=== PATIENT | male | born 1990 | race Caucasian/White ===

== ENCOUNTER 2016-08-03 00:44 | Emergency (ER) | payer SELFPAY ==
[~2016-08-03] VITALS: Ht 162.6 cm; Wt 75.0 kg
[~2016-08-03 00:44] MED LIST: CEPH-443 PO; IBUP-1542 PO
[2016-08-03 00:55] VITALS: Ht 162.6 cm; Wt 75.0 kg
[2016-08-03] MEDS ORDERED: SOD CHLORIDE 0.9% 1,000 ML IV STA (02:33)
[2016-08-03 02:58] LABS: BASOPHILS % 0.3 % (0.0-2.0); EOSINOPHILS % 0.3 % (0.0-7.0); HEMATOCRIT 49.9 % (42.0-52.0); HEMOGLOBIN 17.2 g/dl (14.0-18.0); LYMPHOCYTES # 1.5 10^3/ul (0.8-2.9); MEAN CORPUSCULAR HEMOGLOBIN 30.2 pg (29.0-33.0); MEAN CORPUSCULAR HGB CONC 34.4 g/dl (32.0-37.0); MEAN CORPUSCULAR VOLUME 87.7 fl (82.0-101.0); MEAN PLATELET VOLUME 8.1 fl (7.4-10.4); MONOCYTE # 0.9 10^3/ul (0.3-0.9); NEUTROPHIL # 6.5 10^3/ul (1.6-7.5); NEUTROPHILS % 72.4 % (39.0-77.0); PLATELET COUNT 285 10^3/UL (140-440); RED CELL DISTRIBUTION WIDTH 12.7 % (11.5-14.5)
[2016-08-03 03:00] LABS: CONDITION 1
[2016-08-03] MEDS ORDERED: LORAZEPAM 2 MG INJ IV ONE (03:00)
[2016-08-03 03:03] LABS: CHLORIDE 98 mmol/L (97-110)
[2016-08-03 03:04] LABS: POTASSIUM 3.8 mmol/L (3.5-5.1); SODIUM 142 mmol/L (135-144)
[2016-08-03 03:06] LABS: ALBUMIN/GLOBULIN RATIO 1.11; ALKALINE PHOSPHATASE 87 IU/L (42-121); ANION GAP 19 (8-16); ASPARTATE AMINO TRANSFERASE 77 IU/L (15-46); BILIRUBIN,INDIRECT 1.1 mg/dl (0-1.1); BILIRUBIN,TOTAL 1.1 mg/dl (0.2-1.3); BLOOD UREA NITROGEN 13 mg/dl (7-20); CARBON DIOXIDE 29 mmol/L (21-31); CREATININE 0.91 mg/dl (0.61-1.24); TOTAL PROTEIN 9.5 g/dl (6.1-8.1)
[2016-08-03 03:07] LABS: ALANINE AMINOTRANSFERASE 156 IU/L (13-69); CALCIUM 10.2 mg/dl (8.4-10.2); GLUCOSE 108 mg/dl (70-220)
[2016-08-03 03:21] LABS: TROPONIN-I < 0.012 ng/ml (0.00-0.12)
--- NOTE | 2016-08-03 03:33 | ERD ---
ER Documentation Chief Complaint Date/Time DATE: 08/03/16 TIME: 03:31 Chief Complaint pt reports cp for days and did crystal meth yesterday HPI 25-year-old man presents with palpitations and anxiety after using methamphetamines this evening. He denies suicidal homicidal ideation, no chest pain or shortness of breath, no vomiting or diarrhea. ROS All systems reviewed and are negative except as per history of present illness. Medications Home Meds Active Scripts Cephalexin* (Keflex*) 500 Mg Capsule, 500 MG PO QID for 7 Days, CAP Prov:LASHON SANDOVAL PA-C 02/01/16 Ibuprofen* (Motrin*) 600 Mg Tab, 600 MG PO Q6, #30 TAB Prov:LASHON SANDOVAL PA-C 02/01/16 Allergies Allergies: Coded Allergies: No Known Allergy (Unverified , 02/01/16) PMhx/Soc Drug abuse Medical and Surgical Hx: pt denies Medical Hx, pt denies Surgical Hx Hx Alcohol Use: Yes (everyday) Hx Substance Use: Yes (crystal meth last used today) Hx Tobacco Use: No Smoking Status: Never smoker FmHx Family History: No diabetes Physical Exam Vitals Vital Signs Date Time Temp Pulse Resp B/P Pulse Ox O2 Delivery O2 Flow Rate FiO2 08/03/16 02:34 85 19 152/105 98 Room Air 08/03/16 00:55 98.9 143 24 175/92 100 Physical Exam GENERAL: Well-developed, well-nourished, anxious HEENT: Moist mucous membranes, pink conjunctiva, no cervical spine tenderness or step-off deformities, no goiter, no jaundice or icterus, extraocular movements intact without pain. No submandibular induration, and no pharyngeal erythema NEURO: Alert and oriented 3, cranial nerves II through XII intact bilaterally, pupils equal round reactive to light, no focal deficits or facial asymmetry, sensation intact distally Strength 5/5 in upper and lower extremities bilaterally CARDIAC: Tachycardic, no murmurs rubs or gallops LUNGS: Clear bilaterally no wheezing crackles or stridor ABDOMEN: Soft nontender, no guarding, no rigidity, no rebound, no psoas sign no obturator sign. Normoactive bowel sounds SKIN: Warm and dry to touch, no abrasions, contusions, or hematomas, no lacerations, no ecchymosis, no target lesions, and without ulcers EXTREMITIES: No clubbing cyanosis or edema, calves are bilaterally symmetrical, no Homans sign, no popliteal cord sign. Distal pulses equal and bilateral PSYCH: Anxious Result Diagram: 08/03/16 0250 08/03/16 0250 Results 24 hrs Laboratory Tests Test 08/03/16 02:50 Alanine Aminotransferase (ALT/SGPT) 156IU/L Albumin 5.0g/dl Albumin/Globulin Ratio 1.11 Alkaline Phosphatase 87IU/L Anion Gap 19 Aspartate Amino Transf (AST/SGOT) 77IU/L Basophils # 0.010^3/ul Basophils % 0.3% Blood Urea Nitrogen 13mg/dl Calcium Level 10.2mg/dl Carbon Dioxide Level 29mmol/L Chloride Level 98mmol/L Creatinine 0.91mg/dl Direct Bilirubin 0.00mg/dl Eosinophils # 0.010^3/ul Eosinophils % 0.3% Globulin 4.50g/dl Glucose Level 108mg/dl Hematocrit 49.9% Hemoglobin 17.2g/dl Indirect Bilirubin 1.1mg/dl Lipase 41U/L Lymphocytes # 1.510^3/ul Lymphocytes % 17.0% Mean Corpuscular Hemoglobin 30.2pg Mean Corpuscular Hemoglobin Concent 34.4g/dl Mean Corpuscular Volume 87.7fl Mean Platelet Volume 8.1fl Monocytes # 0.910^3/ul Monocytes % 10.0% Neutrophils # 6.510^3/ul Neutrophils % 72.4% Nucleated Red Blood Cells # 0.010^3/ul Nucleated Red Blood Cells % 0.0/100WBC Platelet Count 27121^3/UL Potassium Level 3.8mmol/L Red Blood Count 5.7010^6/ul Red Cell Distribution Width 12.7% Sodium Level 142mmol/L Total Bilirubin 1.1mg/dl Total Protein 9.5g/dl Troponin I < 0.012ng/ml White Blood Count 9.010^3/ul Current Medications Medications (Trade) Dose Ordered Sig/Marylu Route PRN Reason Start Time Stop Time Status Last Admin Dose Admin Sodium Chloride (NS) 1,000 ml @ 1,000 mls/hr Q1H STAT IV 08/03/16 02:33 08/03/16 03:32 DC 08/03/16 03:00 Lorazepam (Ativan) 1 mg ONCE ONCE IV 08/03/16 03:00 08/03/16 03:01 DC 08/03/16 03:00 Clonidine (Catapres) 0.1 mg ONCE ONCE PO 08/03/16 03:00 08/03/16 03:01 DC 08/03/16 02:59 Procedures/MDM IV line was established patient was placed on umbrella frame maker rhythm strip revealed a sinus tachycardia at about 120 bpm with upright P and T waves. Patient was afebrile. EKG was performed, read by me revealing a sinus tachycardia at 119 bpm, right axis deviation, narrow QRS complex, no concerning ST elevations or depressions noted. I administered 1 L normal saline intravenously, lorazepam 1 mg IV, and clonidine 0.1 mg p.o. for hypertension. CBC and electrolytes were unremarkable, liver function tests were within normal limits except for a slightly elevated transaminase levels, troponin was negative. Patient's vital signs and blood pressure improved, his anxiety improved. Differential diagnoses considered, included but not limited to acute coronary syndrome, pulmonary embolism, aortic dissection, abdominal aortic aneurysm, sepsis, stroke, meningitis, encephalitis, pneumonia, appendicitis, cholecystitis , bowel obstruction, pyelonephritis, nephrolithiasis, cystitis, as well as metabolic, hematologic, and electrolyte abnormalities. As well as abscess, cellulitis, fractures, and dislocations. Patient feels much better at this time, and vital signs are normal, symptoms have improved. I did give strict instructions to return to the ED if symptoms continue or worsen, patient will otherwise follow-up with primary care physician. Patient understood instructions and agreed to plan. Departure Diagnosis: Primary Impression: Methamphetamine abuse Additional Impressions: Hypertension Hypertension type: essential hypertension Qualified Code: I10 - Essential hypertension Anxiety Condition: Good Patient Instructions: Understanding Methamphetamine Abuse and Addiction Referrals: [facility] YOU HAVE RECEIVED A MEDICAL SCREENING EXAM AND THE RESULTS INDICATE THAT YOU DO NOT HAVE A CONDITION THAT REQUIRES URGENT TREATMENT IN THE EMERGENCY DEPARTMENT. FURTHER EVALUATION AND TREATMENT OF YOUR CONDITION CAN WAIT UNTIL YOU ARE SEEN IN YOUR DOCTORS OFFICE WITHIN THE NEXT 1-2 DAYS. IT IS YOUR RESPONSIBILITY TO MAKE AN APPOINTMENT FOR FOLOW-UP CARE. IF YOU HAVE A PRIMARY DOCTOR --you should call your primary doctor and schedule an appointment IF YOU DO NOT HAVE A PRIMARY DOCTOR YOU CAN CALL OUR PHYSICIAN REFERRAL HOTLINE AT IF YOU CAN NOT AFFORD TO SEE A PHYSICIAN YOU CAN CHOSE FROM THE FOLLOWING [facility] [address] [facility] [address] [facility] [address] [facility] [address] [facility] [address] [facility]. [facility] [address] [facility]. [facility] YOU HAVE RECEIVED A MEDICAL SCREENING EXAM AND THE RESULTS INDICATE THAT YOU DO NOT HAVE A CONDITION THAT REQUIRES URGENT TREATMENT IN THE EMERGENCY DEPARTMENT. FURTHER EVALUATION AND TREATMENT OF YOUR CONDITION CAN WAIT UNTIL YOU ARE SEEN IN YOUR DOCTORS OFFICE WITHIN THE NEXT 1-2 DAYS. IT IS YOUR RESPONSIBILITY TO MAKE AN APPOINTMENT FOR FOLOW-UP CARE. IF YOU HAVE A PRIMARY DOCTOR --you should call your primary doctor and schedule and appointment IF YOU DO NOT HAVE A PRIMARY DOCTOR YOU CAN CALL OUR PHYSICIAN REFERRAL HOTLINE AT . IF YOU CAN NOT AFFORD TO SEE A PHYSICIAN YOU CAN CHOSE FROM THE FOLLOWING [facility] INSTITUTIONS: [facility] [address] [place] [address] [facility] [address] [place] [address] [facility] [address] [place] [address] DAHLIA JARAMILLO MD Aug 03, 2016 03:33
[2016-08-03] MEDS ORDERED: METOPROLOL 50 MG TAB PO ONE (05:00)
[2016-08-03] MEDS ORDERED: SOD CHLORIDE 0.9% 1,000 ML IV ONE (05:00)
[2016-08-03 06:05] VITALS: BP 130/80; PULSE 80; RESP 18; TEMP 98.2
== END 2016-08-03 06:07 | disposition home or self-care (01) ==
LOC: E/R 00:44
DX: F15.10 Other stimulant abuse, uncomplicated (principal); F41.9 Anxiety disorder, unspecified; I10 Essential (primary) hypertension; R40.2142 Coma scale, eyes open, spontaneous, at arrival to emergency department; R40.2252 Coma scale, best verbal response, oriented, at arrival to emergency department; R40.2362 Coma scale, best motor response, obeys commands, at arrival to emergency department
CPT/HCPCS: 36415; 80053; 83690; 84484; 85025; 93005; 96374; 99284; J2060; J7030

== ENCOUNTER 2016-08-29 15:45 | Emergency (ER) | payer SELFPAY ==
[~2016-08-29] VITALS: Ht 162.6 cm; Wt 81.7 kg
[2016-08-29 15:48] VITALS: Ht 162.6 cm; Wt 81.7 kg
[2016-08-29] MEDS ORDERED: KETOROLAC 30 MG INJ IV STA (19:01)
[2016-08-29 19:37] LABS: ADD SCAN DIFF NO
[2016-08-29 19:39] LABS: BASOPHILS % 0.5 % (0.0-2.0); EOSINOPHILS % 0.4 % (0.0-7.0); HEMATOCRIT 44.4 % (42.0-52.0); HEMOGLOBIN 15.8 g/dl (14.0-18.0); LYMPHOCYTES # 1.8 10^3/ul (0.8-2.9); LYMPHOCYTES % 24.1 % (15.0-51.0); MEAN CORPUSCULAR HEMOGLOBIN 30.3 pg (29.0-33.0); MEAN CORPUSCULAR HGB CONC 35.6 g/dl (32.0-37.0); MEAN CORPUSCULAR VOLUME 85.1 fl (82.0-101.0); MONOCYTE # 0.5 10^3/ul (0.3-0.9); MONOCYTES % 6.6 % (0.0-11.0); NEUTROPHIL # 5.1 10^3/ul (1.6-7.5); PLATELET COUNT 269 10^3/UL (140-415); RED BLOOD COUNT 5.22 10^6/ul (4.70-6.10); RED CELL DISTRIBUTION WIDTH 11.8 % (11.5-14.5); WHITE BLOOD COUNT 7.4 10^3/ul (4.8-10.8)
[2016-08-29 19:43] LABS: ADD UMIC NO; URINE BILIRUBIN (Dip) NEGATIVE (NEGATIVE); URINE BLOOD (Dip) NEGATIVE (NEGATIVE); URINE COLOR LT. YELLOW (YELLOW); URINE GLUCOSE (Dip) NEGATIVE (NEGATIVE); URINE KETONES (Dip) NEGATIVE (NEGATIVE); URINE LEUKOCYTE ESTERASE (Dip) NEGATIVE (NEGATIVE); URINE NITRITE (Dip) NEGATIVE (NEGATIVE); URINE TOTAL PROTEIN (Dip) NEGATIVE (NEGATIVE); URINE UROBILINOGEN (Dip) 0.2 E.U./dL (0.1-1.0)
[2016-08-29 19:53] LABS: ALBUMIN 4.9 g/dl (3.3-4.9)
[2016-08-29 19:54] LABS: POTASSIUM 4.1 mmol/L (3.5-5.1)
[2016-08-29 19:56] LABS: BILIRUBIN,INDIRECT 0.6 mg/dl (0-1.1); BILIRUBIN,TOTAL 0.6 mg/dl (0.2-1.3); CREATININE 0.77 mg/dl (0.61-1.24)
[2016-08-29 19:57] LABS: ALBUMIN/GLOBULIN RATIO 1.32; CALCIUM 9.8 mg/dl (8.4-10.2); TOTAL PROTEIN 8.6 g/dl (6.1-8.1)
--- NOTE | 2016-08-29 20:16 | RADRPT ---
PROCEDURE: CT Abdomen and Pelvis without contrast. CLINICAL INDICATION: Abdominal and pelvic pain. TECHNIQUE: CT scan of the abdomen and pelvis without contrast was performed. Coronal and sagittal reformatted images were obtained from the axial source images. Images were reviewed on a high-resolu [employer] PACS workstation. Total exam DLP is 564.77 mGy-cm. CTDIvol is 9.72 mGy. One or more of the [facility] dose reduction techniques were used: Automated exposure control, adjustment of the mA and/or kV according to patient size, use of iterative reconstruction technique. COMPARISON: None. FINDINGS: The lung bases are normal. There is no pleural effusion. The liver is enlarged and diffusely decreased attenuation consistent with fatty metamorphosis. The gallbladder and bile ducts are normal. The spleen is normal in size. There is no focal splenic lesion. Both adrenals are normal with no enlargement or mass. The pancreas is unremarkable with no mass or evidence of pancreatitis. There is no renal mass or hydronephrosis. There is no renal calculus or ureteral calculus. The abdominal aorta is not dilated. There is no retroperitoneal lymphadenopathy or mass. There is no pelvic lymphadenopathy or mass. The bladder and distal ureters are normal. The periappendiceal region is unremarkable with no evidence of appendicitis. The appendix is well se en and appears normal. The bowel and mesentery are normal. There is no free fluid or free gas. The osseous structures are unremarkable with no fracture or lytic lesion. IMPRESSION: 1. Fatty metamorphosis of the liver. 2. Hepatomegaly. 3. No urinary tract calculus or hydronephrosis. 4. Normal appendix. 5. Otherwise normal noncontrast CT scan of the abdomen and pelvis. RPTAT: QQ .Lincoln Cruz MD, MD Date Time Electronically viewed and signed by .Lincoln Cruz MD, MD on 08/29/2016 20:16 .R/
[2016-08-29] MEDS ORDERED: NAPR-260 PO (20:24)
[2016-08-29 20:47] VITALS: BP 119/76; PULSE 78; RESP 16
--- NOTE | 2016-08-30 00:03 | ERD ---
ER Documentation Chief Complaint Date/Time DATE: 08/29/16 TIME: 23:59 Chief Complaint back pain, pt feeling light headed, generalized weakness since morning. HPI This is a 25-year-old male presents to the ER with multiple complaints. Patient is complaining of left lower quadrant abdominal pain that radiates to his left flank. Patient denies any nausea vomiting or diarrhea. He denies any urinary frequency or dysuria. He denies any hematuria. Patient is also complaining of generalized weakness and fatigue that started this morning. She denies any chest pain or shortness of breath. He denies any fevers or chills. There are no sick contacts at home. ROS 12 point review of systems was done, all negative except per HPI. Medications Home Meds Active Scripts Naproxen* (Naprosyn*) 500 Mg Tablet, 500 MG PO BID Y for PAIN AND/OR INFLAMMATION, #30 TAB Prov:FRANKLIN KURTZ 08/29/16 Cephalexin* (Keflex*) 500 Mg Capsule, 500 MG PO QID for 7 Days, CAP Prov:LASHON SANDOVAL PA-C 02/01/16 Ibuprofen* (Motrin*) 600 Mg Tab, 600 MG PO Q6, #30 TAB Prov:LASHON SANDOVAL PA-C 02/01/16 Allergies Allergies: Coded Allergies: No Known Allergy (Unverified , 02/01/16) PMhx/Soc Medical and Surgical Hx: pt denies Medical Hx, pt denies Surgical Hx History of Surgery: No Anesthesia Reaction: No Hx Neurological Disorder: No Hx Respiratory Disorders: No Hx Cardiac Disorders: No Hx Psychiatric Problems: No Hx Miscellaneous Medical Probl: No Hx Alcohol Use: Yes (everyday) Hx Substance Use: No (crystal meth ) Hx Tobacco Use: No Smoking Status: Former smoker Physical Exam Vitals Vital Signs Date Time Temp Pulse Resp B/P Pulse Ox O2 Delivery O2 Flow Rate FiO2 08/29/16 20:47 78 16 119/76 99 Room Air 08/29/16 15:48 98.4 85 20 143/90 98 Physical Exam GENERAL: The patient is well developed and appropriate for usual state of health , in no apparent distress. HEENT: Atraumatic. CHEST: Clear to auscultation bilaterally. There are no rales, wheezes or rhonchi. HEART: Regular rate and rhythm. No murmurs, clicks, rubs or gallops. ABDOMEN: Soft, nontender and nondistended. Good bowel sounds. No rebound or guarding. No gross peritonitis. No gross organomegaly or masses. No George sign or McBurney point tenderness. BACK: No midline or flank tenderness. NEURO: Alert and oriented. Cranial nerves II through XII are intact. Motor strength in all 4 extremities with 5/5 strength. Sensation grossly intact. Normal speech and gait. SKIN: There is no apparent rash or petechia. The skin is warm and dry. Result Diagram: 08/29/16191908/29/161919 Results 24 hrs Laboratory Tests Test 08/29/16 19:20 Alanine Aminotransferase (ALT/SGPT) 162IU/L Albumin 4.9g/dl Albumin/Globulin Ratio 1.32 Alkaline Phosphatase 87IU/L Anion Gap 18 Aspartate Amino Transf (AST/SGOT) 80IU/L Basophils # 0.010^3/ul Basophils % 0.5% Blood Urea Nitrogen 11mg/dl Calcium Level 9.8mg/dl Carbon Dioxide Level 30mmol/L Chloride Level 99mmol/L Creatinine 0.77mg/dl Direct Bilirubin 0.00mg/dl Eosinophils # 0.010^3/ul Eosinophils % 0.4% Globulin 3.70g/dl Glucose Level 103mg/dl Hematocrit 44.4% Hemoglobin 15.8g/dl Indirect Bilirubin 0.6mg/dl Lipase 51U/L Lymphocytes # 1.810^3/ul Lymphocytes % 24.1% Mean Corpuscular Hemoglobin 30.3pg Mean Corpuscular Hemoglobin Concent 35.6g/dl Mean Corpuscular Volume 85.1fl Mean Platelet Volume 10.0fl Monocytes # 0.510^3/ul Monocytes % 6.6% Neutrophils # 5.110^3/ul Neutrophils % 68.0% Nucleated Red Blood Cells # 0.010^3/ul Nucleated Red Blood Cells % 0.0/100WBC Platelet Count 10051^3/UL Potassium Level 4.1mmol/L Red Blood Count 5.2210^6/ul Red Cell Distribution Width 11.8% Sodium Level 143mmol/L Total Bilirubin 0.6mg/dl Total Protein 8.6g/dl Urine Bilirubin NEGATIVE Urine Clarity CLEAR Urine Color LT. YELLOW Urine Glucose NEGATIVE% Urine Hemoglobin NEGATIVE Urine Ketones NEGATIVE Urine Leukocyte Esterase NEGATIVE Urine Nitrite NEGATIVE Urine Specific [place] 1.020 Urine Total Protein NEGATIVE Urine Urobilinogen 0.2 E.U./dL Urine pH 6.0 White Blood Count 7.410^3/ul Current Medications Medications (Trade) Dose Ordered Sig/Marylu Route PRN Reason Start Time Stop Time Status Last Admin Dose Admin Ketorolac Tromethamine (Toradol) 30 mg ONCE STAT IV 08/29/16 19:01 08/29/16 19:03 DC 08/29/16 19:19 Procedures/MDM Differential diagnosis includes but is not limited to; diverticulitis, obstruction, constipation, nephrolithiasis, pyelonephritis, UTI , Benign positional vertigo, labyrinthitis, vertigo, MS, acoustic neuroma, arrhythmia, anemia, hypoglycemia, infection, dehydration. This is a 25-year-old male presents to the ER with multiple complaints. At this time I do not believe patient is having any signs or symptoms of acute abdomen. He is afebrile and well-appearing. His physical examination is benign. Patient's imaging studies were normal. There is no evidence of anemia, infection or any other electrolyte abnormalities. She is neurologically intact with no focal neurological deficits. Patient will be sent home with naproxen. Advised to follow-up with his primary care doctor within 1-2 days or return to ER sooner if symptoms worsen. My medical decision making Riley with the patient he understands and agrees with plan. EKG was reviewed by Dr. Cortez there is no evidence of OR or arrhythmias at this time Departure Diagnosis: Primary Impression: Multiple complaints Condition: Stable Patient Instructions: Abdominal Pain, Unkown Cause, (Male) Additional Instructions: Call your primary care doctor TOMORROW for an appointment during the next 1-2 days.See the doctor sooner or return here if your condition worsens before your appointment time. FRANKLIN KURTZ Aug 30, 2016 00:03
== END 2016-08-29 20:50 | disposition home or self-care (01) ==
LOC: FTE 15:45
DX: R10.32 Left lower quadrant pain (principal); R42 Dizziness and giddiness; R53.1 Weakness; Z87.891 Personal history of nicotine dependence
CPT/HCPCS: 36415; 74176; 80053; 81003; 83690; 85025; 93005; 96374; 99285; J1885

== ENCOUNTER 2016-10-18 09:23 | Emergency (ER) | payer SELFPAY ==
[~2016-10-18] VITALS: Ht 160 cm; Wt 79.5 kg
[~2016-10-18 09:23] MED LIST changes: +NAPR-260 PO
[2016-10-18 09:28] VITALS: Ht 160 cm; Wt 79.5 kg
[2016-10-18] MEDS ORDERED: LIDOCAINE/MYLANTA 40 ML BTL PO STA (09:52)
[2016-10-18] MEDS ORDERED: ONDANSETRON 4 MG INJ IV STA (09:52)
[2016-10-18] MEDS ORDERED: SOD CHLORIDE 0.9% 1,000 ML IV STA (09:52)
[2016-10-18 10:40] LABS: ADD SCAN DIFF NO
[2016-10-18 10:42] LABS: BASOPHIL # 0.1 10^3/ul (0.0-0.1); BASOPHILS % 0.5 % (0.0-2.0); EOSINOPHILS % 0.1 % (0.0-7.0); HEMATOCRIT 48.2 % (42.0-52.0); HEMOGLOBIN 16.7 g/dl (14.0-18.0); LYMPHOCYTES # 1.7 10^3/ul (0.8-2.9); LYMPHOCYTES % 18.6 % (15.0-51.0); MEAN CORPUSCULAR HEMOGLOBIN 29.7 pg (29.0-33.0); MEAN CORPUSCULAR HGB CONC 34.6 g/dl (32.0-37.0); MEAN CORPUSCULAR VOLUME 85.8 fl (82.0-101.0); MEAN PLATELET VOLUME 9.7 fl (7.4-10.4); MONOCYTE # 0.8 10^3/ul (0.3-0.9); MONOCYTES % 8.4 % (0.0-11.0); NEUTROPHIL # 6.7 10^3/ul (1.6-7.5); PLATELET COUNT 313 10^3/UL (140-415); RED BLOOD COUNT 5.62 10^6/ul (4.70-6.10); RED CELL DISTRIBUTION WIDTH 12.1 % (11.5-14.5); WHITE BLOOD COUNT 9.4 10^3/ul (4.8-10.8)
[2016-10-18 10:55] LABS: ALBUMIN 5.1 g/dl (3.3-4.9); ALBUMIN/GLOBULIN RATIO 1.27; BILIRUBIN,INDIRECT 0.5 mg/dl (0-1.1); BILIRUBIN,TOTAL 0.5 mg/dl (0.2-1.3); CALCIUM 10.1 mg/dl (8.4-10.2); CREATININE 0.8 mg/dl (0.61-1.24); POTASSIUM 3.9 mmol/L (3.5-5.1); TOTAL PROTEIN 9.1 g/dl (6.1-8.1)
[2016-10-18 10:58] LABS: ADD UMIC YES; URINE BILIRUBIN (Dip) NEGATIVE (NEGATIVE); URINE BLOOD (Dip) TRACE (NEGATIVE); URINE COLOR YELLOW (YELLOW); URINE GLUCOSE (Dip) NEGATIVE (NEGATIVE); URINE KETONES (Dip) NEGATIVE (NEGATIVE); URINE LEUKOCYTE ESTERASE (Dip) NEGATIVE (NEGATIVE); URINE NITRITE (Dip) NEGATIVE (NEGATIVE); URINE TOTAL PROTEIN (Dip) TRACE (NEGATIVE); URINE UROBILINOGEN (Dip) 0.2 E.U./dL (0.1-1.0)
[2016-10-18 11:06] LABS: MUCUS,URINE MODERATE; URINE RBCS 0-2 /HPF (0)
[2016-10-18] MEDS ORDERED: LORAZEPAM 2 MG INJ IV ONE (12:00)
[2016-10-18] MEDS ORDERED: RANI150T9 PO (12:27)
[2016-10-18] MEDS ORDERED: DOCU-144 PO (12:27)
--- NOTE | 2016-10-18 12:50 | ERD ---
ER Documentation Chief Complaint Date/Time DATE: 10/18/16 TIME: 12:46 Chief Complaint AP HPI 26-year-old male with no significant past medical history presents to the ED stating that he drank 6 beers, 3 shots of tequila and 1 shot of vodka last night and his left upper abdomen started to hurt yesterday. Reports that it is a burning sensation and rates it a 4 out of 10. Denies any chest pain, shortness of breath, cough, fever, chills, diarrhea, nausea, vomiting. States that he feels like the left side of his body is swollen and gets nervous and feels like he is having a panic attack. States that his last bowel movement was yesterday. Reports that he feels constipated. ROS All systems reviewed and are negative except as per history of present illness. Medications Home Meds Active Scripts Ranitidine Hcl* (Zantac*) 150 Mg Tablet, 150 MG PO BID Y for EPIGASTRIC PAIN, # 30 TAB Prov:LASHON SANDOVAL PA-C 10/18/16 Docusate Sodium* (Colace*) 100 Mg Capsule, 100 MG PO TID, #30 CAP Prov:LASHON SANDOVAL PA-C 10/18/16 Naproxen* (Naprosyn*) 500 Mg Tablet, 500 MG PO BID Y for PAIN AND/OR INFLAMMATION, #30 TAB Prov:FRANKLIN KURTZ 08/29/16 Cephalexin* (Keflex*) 500 Mg Capsule, 500 MG PO QID for 7 Days, CAP Prov:LASHON SANDOVAL PA-C 02/01/16 Ibuprofen* (Motrin*) 600 Mg Tab, 600 MG PO Q6, #30 TAB Prov:LASHON SANDOVAL PA-C 02/01/16 Allergies Allergies: Coded Allergies: No Known Allergy (Unverified , 10/18/16) PMhx/Soc Medical and Surgical Hx: pt denies Medical Hx, pt denies Surgical Hx History of Surgery: No Anesthesia Reaction: No Hx Neurological Disorder: No Hx Respiratory Disorders: No Hx Cardiac Disorders: No Hx Psychiatric Problems: No Hx Miscellaneous Medical Probl: No Hx Alcohol Use: Yes (everyday) Hx Substance Use: No (crystal meth ) Hx Tobacco Use: No Smoking Status: Never smoker Physical Exam Vitals Vital Signs Date Time Temp Pulse Resp B/P Pulse Ox O2 Delivery O2 Flow Rate FiO2 10/18/16 09:28 98.1 99 20 147/89 99 Physical Exam Const: [id number], well-nourished. In no acute distress. Head: Atraumatic, normocephalic Eyes: Normal Conjunctiva without injection. No purulent discharge. ENT: Normal external ear, nose. Moist oropharynx without tonsillar exudates. Non -erythematous pharynx. Uvula midline. No drooling. No trismus. Neck: No cervical midline tenderness. Full range of motion. No meningismus. No cervical lymphadenopathy. No JVD. Resp: Clear to auscultation bilaterally. No wheezing, rhonchi, rales, or crackles. No accessory muscle use. No retractions. Cardio: Regular rate and rhythm. No murmurs, rubs or gallops. Abd: Soft, slight left upper quadrant tenderness, non distended. Normal bowel sounds. No palpable masses. No rebound tenderness. No guarding. Negative McBurney's point. Negative psoas sign. Negative obturator sign. Skin: No petechiae or rashes Back: No midline tenderness. No CVA tenderness. Ext: No cyanosis, or edema. Neur: Awake and alert. Normal gait. Normal coordination. Psych: Normal Mood and Affect Results 24 hrs Laboratory Tests Test 10/18/16 10:20 10/18/16 10:25 White Blood Count 9.410^3/ul Red Blood Count 5.6210^6/ul Hemoglobin 16.7g/dl Hematocrit 48.2% Mean Corpuscular Volume 85.8fl Mean Corpuscular Hemoglobin 29.7pg Mean Corpuscular Hemoglobin Concent 34.6g/dl Red Cell Distribution Width 12.1% Platelet Count 14642^3/UL Mean Platelet Volume 9.7fl Neutrophils % 72.0% Lymphocytes % 18.6% Monocytes % 8.4% Eosinophils % 0.1% Basophils % 0.5% Nucleated Red Blood Cells % 0.0/100WBC Neutrophils # 6.710^3/ul Lymphocytes # 1.710^3/ul Monocytes # 0.810^3/ul Eosinophils # 0.010^3/ul Basophils # 0.110^3/ul Nucleated Red Blood Cells # 0.010^3/ul Sodium Level 140mmol/L Potassium Level 3.9mmol/L Chloride Level 101mmol/L Carbon Dioxide Level 28mmol/L Anion Gap 15 Blood Urea Nitrogen 11mg/dl Creatinine 0.80mg/dl Glucose Level 114mg/dl Calcium Level 10.1mg/dl Total Bilirubin 0.5mg/dl Direct Bilirubin 0.00mg/dl Indirect Bilirubin 0.5mg/dl Aspartate Amino Transf (AST/SGOT) 58IU/L Alanine Aminotransferase (ALT/SGPT) 120IU/L Alkaline Phosphatase 81IU/L Total Protein 9.1g/dl Albumin 5.1g/dl Globulin 4.00g/dl Albumin/Globulin Ratio 1.27 Lipase 63U/L Ethyl Alcohol Level < 10.0mg/dl Urine Color YELLOW Urine Clarity CLEAR Urine pH 5.5 Urine Specific [place] >=1.030 Urine Ketones NEGATIVE Urine Nitrite NEGATIVE Urine Bilirubin NEGATIVE Urine Urobilinogen 0.2 E.U./dL Urine Leukocyte Esterase NEGATIVE Urine Microscopic RBC 0-2/HPF Urine Microscopic WBC 0-2/HPF Urine Mucus MODERATE Urine Hemoglobin TRACE Urine Glucose NEGATIVE% Urine Total Protein TRACE Current Medications Medications (Trade) Dose Ordered Sig/Marylu Route PRN Reason Start Time Stop Time Status Last Admin Dose Admin Sodium Chloride (NS) 1,000 ml @ 1,000 mls/hr Q1H STAT IV 10/18/16 09:52 10/18/16 10:51 DC 10/18/16 10:32 Ondansetron HCl (Zofran Inj) 4 mg ONCE STAT IV 10/18/16 09:52 10/18/16 09:59 DC 10/18/16 10:32 Miscellaneous Medication (Gi Cocktail (2)) 40 ml ONCE STAT PO 10/18/16 09:52 10/18/16 09:59 DC 10/18/16 10:32 Lorazepam (Ativan) 1 mg ONCE ONCE IV 10/18/16 12:00 10/18/16 12:01 DC 10/18/16 12:15 Procedures/MDM 26-year-old male with no significant past medical history presents to the ED complaining of left upper quadrant abdominal pain after drinking 6 beers, 3 shots of tequila and 1 shot of vodka. Patient is afebrile and nontoxic- appearing. Patient has normal vital signs. Patient was evaluated here in the ED with a CBC, CMP, lipase. Patient was treated here in the ED with 1 L of normal saline, 40 mL of GI cocktail, 1 mg Ativan with improvement of his symptoms. CBC: No leukocytosis. No e/o of systemic infection. No e/o anemia. CMP: No e/o severe acidosis, alkalosis, renal failure, diabetic ketoacidosis, AST 58 ALT 120 elevated liver enzymes could likely be secondary to alcoholism Lipase within normal limits. Urine: No leukocyte esterase, no nitrites, no hematuria. Discharge medications: Zantac, Colace Follow up with primary care physician in 1-2 days. Instructed patient to return to the ED sooner for any worsening symptoms. Patient's questions were answered. Patient understood and agreed with discharge plan. Patient discharged stable. Departure Diagnosis: Primary Impression: Alcohol use Additional Impression: Abdominal pain Abdominal location: left upper quadrant Qualified Code: R10.12 - Left upper quadrant pain Condition: Stable Patient Instructions: Abdominal Pain, Signs of Alcohol Addiction (Alcoholism), The Impact of Alcoholism Referrals: [facility] YOU HAVE RECEIVED A MEDICAL SCREENING EXAM AND THE RESULTS INDICATE THAT YOU DO NOT HAVE A CONDITION THAT REQUIRES URGENT TREATMENT IN THE EMERGENCY DEPARTMENT. FURTHER EVALUATION AND TREATMENT OF YOUR CONDITION CAN WAIT UNTIL YOU ARE SEEN IN YOUR DOCTORS OFFICE WITHIN THE NEXT 1-2 DAYS. IT IS YOUR RESPONSIBILITY TO MAKE AN APPOINTMENT FOR FOLOW-UP CARE. IF YOU HAVE A PRIMARY DOCTOR --you should call your primary doctor and schedule an appointment IF YOU DO NOT HAVE A PRIMARY DOCTOR YOU CAN CALL OUR PHYSICIAN REFERRAL HOTLINE AT IF YOU CAN NOT AFFORD TO SEE A PHYSICIAN YOU CAN CHOSE FROM THE FOLLOWING [facility] CLINICS [facility] [address] [facility]. [facility] [address] [facility]. [facility] [address] [facility]. [facility] [address] [facility] [address] [facility]. [facility]. [address] [facility]. [facility] YOU HAVE RECEIVED A MEDICAL SCREENING EXAM AND THE RESULTS INDICATE THAT YOU DO NOT HAVE A CONDITION THAT REQUIRES URGENT TREATMENT IN THE EMERGENCY DEPARTMENT. FURTHER EVALUATION AND TREATMENT OF YOUR CONDITION CAN WAIT UNTIL YOU ARE SEEN IN YOUR DOCTORS OFFICE WITHIN THE NEXT 1-2 DAYS. IT IS YOUR RESPONSIBILITY TO MAKE AN APPOINTMENT FOR FOLOW-UP CARE. IF YOU HAVE A PRIMARY DOCTOR --you should call your primary doctor and schedule and appointment IF YOU DO NOT HAVE A PRIMARY DOCTOR YOU CAN CALL OUR PHYSICIAN REFERRAL HOTLINE AT . IF YOU CAN NOT AFFORD TO SEE A PHYSICIAN YOU CAN CHOSE FROM THE FOLLOWING [facility] INSTITUTIONS: [facility] [address] [place] [address] [facility] [address] [place] [address] [facility] [address] [place] [address] [facility] URGENT CARE/SPECIALTIES Additional Instructions: Call your primary care doctor TOMORROW for an appointment during the next 1-2 days.See the doctor sooner or return here if your condition worsens before your appointment time. LASHON SANDOVAL PA-C Oct 18, 2016 12:50 appointment time. LASHON SANDOVAL PA-C Oct 18, 2016 12:50
[2016-10-18 13:00] VITALS: BP 129/82; PULSE 101; RESP 18; TEMP 98.5
== END 2016-10-18 13:00 | disposition home or self-care (01) ==
LOC: FTE 09:23
DX: F10.99 Alcohol use, unspecified with unspecified alcohol-induced disorder (principal)
CPT/HCPCS: 80053; 80306; 81001; 83690; 85025; J2060; J2405; J7030; 36415; 81003; 96361; 96374; 96375